=== PATIENT | male | born 1980 | race Two or more races ===

== ENCOUNTER 2017-11-14 16:54 | Emergency (ER) | payer MEDICAID, OTHER ==
[~2017-11-14] VITALS: Ht 190.5 cm; Wt 77.3 kg
[2017-11-14] MEDS ORDERED: sulfamethoxazole/trimethoprim DS (800/160mg) tablet PO ONE (18:45)
[2017-11-14] MEDS ORDERED: CefTRIAXone 2gm/D5W 50ml 50 ML IV ONE (18:45)
[2017-11-14 19:05] LABS: CLARITY,URINE CLEAR (Clear); COLOR,URINE AMBER (Yellow); GLUCOSE, URINE NEGATIVE (Neg); KETONES,URINE TRACE mg/dl (Neg); LEUKOCYTE ESTERASE ,URINE NEGATIVE (Neg); NITRITES, URINE NEGATIVE (Neg); OCCULT BLOOD,URINE NEGATIVE (Neg); PROTEIN,URINE TRACE mg/dl (Neg)
[2017-11-14 19:07] LABS: UA COLLECTION TYPE CLN CATCH MIDSTREAM
[2017-11-14 19:20] LABS: BACTERIA,URINE NONE SEEN /HPF (Neg); MUCUS STRANDS MANY /LPF (Neg); RBC,URINE NONE SEEN /HPF (0-2); SQUAMOUS EPITHELIAL CELL,UR FEW /LPF (FEW); WBC,URINE 0-4 /HPF (0-4)
[2017-11-14] MEDS ORDERED: CEPH-572 PO (20:34)
[2017-11-14] MEDS ORDERED: SULF1TAB49 PO (20:34)
[2017-11-14 20:46] VITALS: BP 120/84
== END 2017-11-14 20:51 | disposition home or self-care (01) ==
LOC: ER 16:55
DX: L03.113 Cellulitis of right upper limb (principal); Z59.0 Homelessness; Z79.899 Other long term (current) drug therapy
CPT/HCPCS: 81001; 96365; 99284; J0696; J7030